=== PATIENT | male | born 1965 | race Caucasian/White ===

== ENCOUNTER 2017-03-07 17:13 | Emergency (ER) | payer SELFPAY ==
[2017-03-07 17:37] VITALS: BP 133/84
--- NOTE | 2017-03-07 18:08 | UC ---
Hand/Wrist HPI - HPI Summary HPI Summary: 51 yo male with the onset of right little finger pain and swelling about 4-5 days ago ? injury using loppers he is left handed swelling has increased and now he has dorsal hand edema - History Of Current Complaint Chief Complaint: UCUpperExtremity Stated Complaint: RIGHT HAND INJURY Time Seen by Provider: 03/07/17 17:44 Hx Obtained From: Patient Onset/Duration: Gradual Onset Severity Initially: Mild Severity Currently: None Pain Intensity: 4 Pain Scale Used: 0-10 Numeric Character Of Pain: Dull, Aching Aggravating Factor(s): Movement Alleviating: Rest Associated Signs And Symptoms: Positive: Swelling Related History: Dominant Hand Left - Allergies/Home Medications Allergies/Adverse Reactions: Allergies Allergy/AdvReac Type Severity Reaction Status Date / Time No Known Allergies Allergy Verified 03/07/17 17:25 Home Medications: Home Medications Isosorbide Mononitrate (NF) 30 mg PO DAILY 03/07/17 [History Confirmed 03/07/17] PMH/Surg Hx/FS Hx/Imm Hx Previously Healthy: Yes - Surgical History Surgical History: Yes Surgery Procedure, Year, and Place: gall bladder. CARDIAC [facility]-2014 - Family History Known Family History: Positive: Cardiac Disease, Hypertension, Diabetes - Social History Alcohol Use: Occasionally Substance Use Type: None Smoking Status (MU): Heavy Every Day Tobacco Smoker Type: Cigarettes Amount Used/How Often: PPD Household Exposure Type: Cigarettes Cessation Counseling: Patient Advised to Stop Review of Systems Constitutional: Negative Skin: Negative Eyes: Negative ENT: Negative Respiratory: Negative Cardiovascular: Negative Gastrointestinal: Negative Genitourinary: Negative Motor: Negative Neurovascular: Negative Musculoskeletal: Arthralgia, Myalgia Neurological: Negative Psychological: Negative All Other Systems Reviewed And Are Negative: Yes Physical Exam Triage Information Reviewed: Yes Appearance: Well-Appearing, No Pain Distress, Well-Nourished Vital Signs: Initial Vital Signs Temp 98 F 03/07/17 17:27 Pulse 88 03/07/17 17:27 Resp 18 03/07/17 17:27 BP 133/84 03/07/17 17:27 Pulse Ox 99 03/07/17 17:27 Vital Signs Reviewed: Yes Eyes: Positive: Conjunctiva Inflamed ENT: Positive: Hearing grossly normal. Negative: Nasal congestion, Nasal drainage, Tonsillar exudate, Trismus, Muffled/hoarse voice Neck: Positive: Supple, Nontender, No Lymphadenopathy Respiratory: Positive: Lungs clear, Normal breath sounds, No respiratory distress, No accessory muscle use Cardiovascular: Positive: RRR, No Murmur Musculoskeletal: Positive: Edema @ - dorsum of right hand and fusiform swelling of little finger Psychological Exam: Normal Skin Exam: Normal Diagnostics - Radiology No standard instances Xray Interpretation: No Acute Changes Radiology Interpretation Completed By: Radiologist Hand/Wrist Course/Dx - Differential Dx/Diagnosis Provider Diagnoses: right little finger injury-suspect overuse syndrome. tobacco abuse Discharge - Discharge Plan Condition: Stable Disposition: HOME Prescriptions: Naproxen Sodium [Naproxen Sodium 500 MG TAB] 500 mg PO BID PRN #30 tab PRN Reason: Pain Patient Education Materials: Swollen Joint (ED) Referrals: Adi Silver MD [Medical Doctor] - 1 Week No Primary Care Phys,NOPCP [Primary Care Provider] - Additional Instructions: warm soaks with range of motion twice daily recheck with orthopedist next week if not better Images Hands: 1 - pain/swelling, no erythema or broken skin 2 - dorsal hand edema
--- NOTE | 2017-03-07 18:18 | RAD ---
HISTORY: Right fifth finger pain and injury COMPARISONS: None VIEWS: 3, Frontal, lateral, and oblique views of the fifth digit of the right hand FINDINGS: BONE DENSITY: Normal. BONES: There is no displaced fracture. 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 ALIGNMENT: There is no dislocation. SOFT TISSUES: Unremarkable. OTHER FINDINGS: None. IMPRESSION: NO ACUTE OSSEOUS INJURY. IF SYMPTOMS PERSIST, RECOMMEND REPEAT IMAGING.
== END 2017-03-07 18:32 | disposition home or self-care (01) ==
LOC: UCCORT 17:13
DX: S69.91XA Unspecified injury of right wrist, hand and finger(s), initial encounter (principal); X58.XXXA Exposure to other specified factors, initial encounter; Y93.9 Activity, unspecified; Y92.9 Unspecified place or not applicable; Z90.49 Acquired absence of other specified parts of digestive tract; Z95.5 Presence of coronary angioplasty implant and graft; F17.210 Nicotine dependence, cigarettes, uncomplicated
CPT/HCPCS: 73140; 99211; G0463

== ENCOUNTER 2019-06-17 15:35 | Emergency (ER) | payer OTHER ==
[2019-06-17 15:55] VITALS: BP 162/92
[2019-06-17] MEDS ORDERED: Ketorolac *IM* INJ* 60 MG/2 ML VIAL IM ONE (16:57)
[2019-06-17] MEDS ORDERED: Tetan/Diph/Pertus SYR(Tdap)* 0.5 ML SYR(BOOSTRIX) use SYR contains LATEX IM ONE (16:59)
--- NOTE | 2019-06-17 16:59 | UC ---
Hand/Wrist HPI - HPI Summary HPI Summary: Patient is a 54-year-old male presenting with left hand pain and swelling that occurred this afternoon at work on a [place].. States his hand got caught in a door handle trying to push a door shut. Notes abrasion over dorsal left hand as well. Notes swelling of the hand. Denies bruising. Denies decreased sensation. Notes decreased range of motion due to swelling and pain. Patient is left-handed. Notes taking acetaminophen today without much relief. Patient states he is not up-to-date on his tetanus. - History Of Current Complaint Chief Complaint: UCUpperExtremity Stated Complaint: HAND INJURY Hx Obtained From: Patient Onset/Duration: Sudden Onset Severity Currently: Severe Pain Intensity: 8 Pain Scale Used: 0-10 Numeric Character Of Pain: Sharp, Throbbing Aggravating Factor(s): Movement, Flexion Associated Signs And Symptoms: Positive: Swelling. Negative: Bruising, Numbness /Tingling - Allergies/Home Medications Allergies/Adverse Reactions: Allergies Allergy/AdvReac Type Severity Reaction Status Date / Time No Known Allergies Allergy Verified 06/17/19 15:55 PMH/Surg Hx/FS Hx/Imm Hx Cardiovascular History: Hypertension - Surgical History Surgical History: Yes Surgery Procedure, Year, and Place: gall bladder. CARDIAC [facility]-2014 - Family History Known Family History: Positive: Cardiac Disease, Hypertension, Diabetes, Non- Contributory - Social History Occupation: Employed Full-time Alcohol Use: Rare Substance Use Type: None Smoking Status (MU): Heavy Every Day Tobacco Smoker Type: Cigarettes Amount Used/How Often: PPD Household Exposure Type: Cigarettes Review of Systems All Other Systems Reviewed And Are Negative: Yes Constitutional: Positive: Negative Skin: Positive: Other - abrasion on dorsal L hand. Negative: Bruising Respiratory: Positive: Negative Cardiovascular: Positive: Negative Musculoskeletal: Positive: Arthralgia - L hand, Decreased ROM - L hand flexion d /t pain and swelling, Edema - L hand/fingers Neurological: Negative: Paresthesia, Numbness Physical Exam Triage Information Reviewed: Yes Appearance: Well-Appearing, No Pain Distress, Well-Nourished Vital Signs: Initial Vital Signs Temp 99.2 F 06/17/19 15:51 Pulse 78 06/17/19 15:51 Resp 18 06/17/19 15:51 BP 162/92 06/17/19 15:51 Pulse Ox 99 06/17/19 15:51 Vital Signs Reviewed: Yes Eyes: Positive: Conjunctiva Clear ENT: Positive: Hearing grossly normal Neck: Positive: Supple Respiratory: Positive: No respiratory distress Cardiovascular: Positive: RRR, Pulses Normal - strong radial pulses b/l, Brisk Capillary Refill Musculoskeletal: Positive: Strength Limited @ - L hand size cutter d/t pain, ROM Limited @ - L hand flexion d/t pain, Edema @ - dorsal L hand Neurological Exam: Other - sensation grossly intact Neurological: Positive: Alert Psychological: Positive: Age Appropriate Behavior Skin: Positive: Other - superifical nonbleeding abrasion noted over. no ecchymosis noted Diagnostics - Radiology L hand Radiology Interpretation Completed By: Radiologist Summary of Radiographic Findings: REPORT AND IMPRESSION: #. Negative for fracture or articular malalignment. #. Soft tissue swelling most prominent over the dorsum of the distal forearm, wrist, and metacarpal region. Hand/Wrist Course/Dx - Course Course Of Treatment: Discussed negative x-rays with patient and instructed to continue symptomatic treatment including use of splint. Instructed to follow-up with occupational health if pain does not resolve. Instructed to return or go to ED with new or worsening pain symptoms. Patient voiced understanding and agreed with treatment plan. - Differential Dx/Diagnosis Differential Diagnosis/HQI/PQRI: Contusion Provider Diagnosis: Left hand pain, Swelling of left hand, Abrasion of left hand Discharge ED - Sign-Out/Discharge Documenting (check all that apply): Patient Departure All imaging exams completed and their final reports reviewed: Yes - Discharge Plan Condition: Stable Disposition: HOME Patient Education Materials: Abrasion (ED), Arthralgia (ED) Forms: *Work Release Referrals: Robert Shook MD [Medical Doctor] - Additional Instructions: As discussed, the xrays of the hand did not show any fractures. Rest, ice, elevate, and use the splint to help relieve pain. You may also use over the counter pain medications as directed for pain relief. You received a tetanus booster today as well. The site of injection may be sore tomorrow, but that is normal and should resolve within a day or two. Keep your wound clean and dry for the first 24 hours. After that, you may gently was with soap and water daily until completely healed. If pain does not resolve, follow up with Dr. Boone in occupational health as listed below. Return or go to the emergency room if pain worsens, the hand becomes cold and numb, or you are unable to move the wrist or hand. - Billing Disposition and Condition Condition: STABLE Disposition: Home
== END 2019-06-17 17:32 | disposition home or self-care (01) ==
LOC: UCEAST 15:35
DX: S60.512A Abrasion of left hand, initial encounter (principal); M79.642 Pain in left hand; M25.442 Effusion, left hand; I10 Essential (primary) hypertension; F17.210 Nicotine dependence, cigarettes, uncomplicated; W23.0XXA Caught, crushed, jammed, or pinched between moving objects, initial encounter; Y92.9 Unspecified place or not applicable; Y99.0 Civilian activity done for income or pay
CPT/HCPCS: 90471; 90715; 96372; 99212; G0463; J1885